=== PATIENT | female | born 1975 | race Caucasian/White ===

== ENCOUNTER → 2018-05-03 | Outpatient (CLI) | payer BC ==
[2018-05-03 13:27] VITALS: BP 123/77; PULSE 80; BMI 23.0
--- NOTE | 2018-05-03 14:11 | P.GSHP ---
History of Present Illness H&P Date: 05/03/18 Patient is a 42 year old white female with a complaint of pain in her left breast about one month ago. She states the pain was in the 12 o'clock position and there was a palpable fullness in this region and additionally there was a grape like nodule in the medial aspect of the breast which was painful as well. Both of these areas have decreased in size although she still feels a fullness in this area. The patient is status post hysterectomy 2011 for endometriosis, her ovaries were not removed. The patient has had cyclic breast pain in the past but this is the first time she has felt lumps of this nature. The patient denies any nipple discharge or skin changes. No trauma or infection of the breast. The patient does not smoke, she drinks coffee in the morning, she does drink Mountain Dew on occasion, she does not eat large amounts of chocolate. She does not have exposure to secondhand smoke. Family History: 1.paternal grandmother: lung cancer 2. mother: heart attack Hormonal History: menarche: 13 : 3, 3 children, age at first: 27, breast fed: no BCP: less than one year Hormones: none Past surgical history: 1. Hysterectomy 2. 3 laparoscopic exams for endometriosis 3. 3 C-sections 4. Tubal ligation 5. Tonsillectomy 6. Tubes in her ears Past medical history: none Social History: smoke: none alcohol: occasional drugs: none - Constitutional Comment: BMI 23 Constitutional: Denies chills, Denies fever - EENT Eyes: denies blurred vision, denies pain Ears: deny: decreased hearing, tinnitus Ears, nose, mouth and throat: Reports headache - Breasts Breasts: bilateral: as per HPI - Cardiovascular Cardiovascular: Denies chest pain, Denies shortness of breath - Respiratory Respiratory: Denies cough, Denies 7 - Gastrointestinal Comment: IBS Gastrointestinal: Reports constipation, Denies abdominal pain, Denies diarrhea, Denies nausea, Denies vomiting - Genitourinary (Female) Genitourinary: Denies dysuria, Denies hematuria - Menstruation Menstruation: Reports post hysterectomy - Musculoskeletal Comment: right shoulder pain - Integumentary Integumentary: Denies pruritus, Denies rash - Neurological Neurological: Denies numbness, Denies weakness - Psychiatric Psychiatric: Reports anxiety, Reports depression - Endocrine Endocrine: Denies fatigue, Denies weight change - Hematologic/Lymphatic Comment: none - Allergic/Immunologic Allergic/Immunologic: Reports seasonal allergies Past Medical History Past Medical History: No Reported History History of Any Multi-Drug Resistant Organisms: None Reported Past Surgical History: Section, Ear Surgery, Hysterectomy, Tonsillectomy, Tubal Ligation Additional Past Surgical History / Comment(s): Joint issues Smoking Status: Never smoker - Past Family History Mother Family Medical History: Coronary Artery Disease (CAD), Hypertension, Osteoarthritis (OA) Additional Family Medical History / Comment(s): Had heart attack at age 50, stent placement Father Family Medical History: No Reported History Brother(s) Additional Family Medical History / Comment(s): back issues, possible osteoarthritis. Medications and Allergies Allergies Allergy/AdvReac Type Severity Reaction Status Date / Time Sulfa (Sulfonamide Allergy Severe Itching Unverified 05/03/18 13:35 Antibiotics) Surgical - Exam Vital Signs Pulse BP Pulse Ox 80 123/77 98 05/03/18 13:19 05/03/18 13:19 05/03/18 13:19 BMI 23 - General well developed, well nourished, no distress - Eyes normal ocular movement - ENT no hearing loss, no congestion - Neck no masses, trachea midline - Respiratory normal respiratory effort, clear to auscultation - Cardiovascular Rhythm: regular Heart Sounds: normal: S1, S2 - Abdomen Abdomen: soft, non tender, no guarding, no rigid, no rebound - Integumentary no abnormal pigmentation - Neurologic no disoriented, no combative - Musculoskeletal normal gait, normal posture - Psychiatric oriented to time, oriented to person, oriented to place, speech is normal, memory intact Breast examination: Right breast: Extremely dense breast tissue especially at 12:00 no discrete dominant masses or nodules a multi-positional exam Right axilla: No adenopathy of concern Left breast: Extremely dense breast tissue especially in the 12:00 area but no discrete dominant masses or nodules a multi-positional exam Left axilla: No adenopathy of concern Results Mammogram was performed in October of 2017 this was a BIRADS 2, repeat bilateral mammogram in 1 year Assessment and Plan Assessment: Impression: 1. Bilateral breast pain greatest in the left side resolving at this time 2. Palpable fullness bilateral breast greatest on the left side which is resolving at this time 3. Back pain 4. History of headaches 5. Endometriosis status post hysterectomy Plan: 1. Bilateral breast ultrasound at this time 2. We will have a discussion regarding fibrocystic breast changes and possibility of exacerbation by caffeine 3. Medical management of medical problems 4. Bilateral mammogram in October 2018 We've had a discussion regarding cessation of caffeine and cyclical breast pain. The patient is going to attempt to decrease her caffeine intake. Additionally we have talked about supplements which would include vitamin E and/ or primrose oil. She will consider the supplements as well. The patient is going to follow-up after her breast ultrasound. Cc: Dr. Elias
== END ==
LOC: WWCWWP 13:18
PROVIDERS: ATTEND Surgery
DX: Z53.9 Procedure and treatment not carried out, unspecified reason (principal)

== ENCOUNTER 2020-05-01 20:40 | Emergency (ER) | payer BC, OTHER ==
[2020-05-01 20:45] VITALS: RESP 18
[2020-05-01] MEDS ORDERED: MORPHINE SULFATE 4 MG/ML SYRINGE IM STA (21:14)
[2020-05-01] MEDS ORDERED: DIPH,PERTUS(ACELL)TETVAC-LF 0.5 ML VIAL IM ONE (21:15)
--- NOTE | 2020-05-01 21:22 | ED ---
General Adult HPI - General Source: patient Mode of arrival: ambulatory Limitations: no limitations <Ruth Ybarra - Last Filed: 05/01/20 22:47> <Delia Arroyo - Last Filed: 05/02/20 12:45> - General Chief complaint: Extremity Injury, Upper Stated complaint: Fall - R Upper Extremity Injury Time Seen by Provider: 05/01/20 20:52 - History of Present Illness Initial comments: 44-year-old female presents to the emergency department tonight with complaints of right arm pain status post fall while rollerblading this afternoon. States she has most severe pain in her right shoulder and is unable to move it without significant discomfort. Complains of tenderness in the right elbow and right wrist as well. She states she took 800 mg of Motrin approximately 30 minutes prior to arrival with no change in pain level. Patient has abrasions to bilateral palms and knees. Patient was not wearing a helmet but she denies hitting her head or losing consciousness. Denies neck or back pain. Denies any other injuries. Patient denies any headache, chest pain, shortness of breath, dizziness, weakness, abdominal pain, nausea, vomiting, or difficulties with bowel movements or urination. (Ruth Ybarra) - Related Data Home Medications Medication Instructions Recorded Confirmed Multivitamin with Iron 05/03/18 [Multivitamins with Iron] Previous Rx's Medication Instructions Recorded Hydrocodone/Acetaminophen [[place] 1 tab PO Q6HR PRN #12 tab 05/01/20 5-325] Ibuprofen [Motrin] 600 mg PO Q8HR PRN #30 tab 05/01/20 Allergies Allergy/AdvReac Type Severity Reaction Status Date / Time Sulfa (Sulfonamide Allergy Severe Itching Verified 05/01/20 20:45 Antibiotics) Review of Systems ROS Other: All systems not noted in ROS Statement are negative. <Ruth Ybarra - Last Filed: 05/01/20 22:47> ROS Other: All systems not noted in ROS Statement are negative. <Delia Arroyo - Last Filed: 05/02/20 12:45> ROS Statement: Those systems with pertinent positive or pertinent negative responses have been documented in the HPI. Past Medical History Past Medical History: No Reported History History of Any Multi-Drug Resistant Organisms: None Reported Past Surgical History: Section, Ear Surgery, Hysterectomy, Tonsillectomy, Tubal Ligation Additional Past Surgical History / Comment(s): Joint issues Past Psychological History: No Psychological Hx Reported Smoking Status: Never smoker Past Alcohol Use History: Rare Past Drug Use History: None Reported - Past Family History Mother Family Medical History: Coronary Artery Disease (CAD), Hypertension, Osteoarthri tis (OA) Additional Family Medical History / Comment(s): Had heart attack at age 50, stent placement Father Family Medical History: No Reported History Brother(s) Additional Family Medical History / Comment(s): back issues, possible osteoarthritis. <Ruth Ybarra - Last Filed: 05/01/20 22:47> General Exam Limitations: no limitations General appearance: alert, in no apparent distress, other (Well-nourished, well-developed female in no acute distress. Presents with a temperature of 98.0F, pulse 71, respirations 18, blood pressure 145/66, pulse ox 100% on room air.) Head exam: Present: atraumatic, normocephalic, normal inspection Respiratory exam: Present: normal lung sounds bilaterally. Absent: respiratory distress, wheezes, rales, rhonchi, stridor Cardiovascular Exam: Present: regular rate, normal rhythm, normal heart sounds. Absent: systolic murmur, diastolic murmur, rubs, gallop, clicks GI/Abdominal exam: Present: soft, normal bowel sounds. Absent: distended, tenderness, guarding, rebound, rigid Right Shoulder Exam: Present: tenderness, swelling Elbow exam: Present: normal inspection, tenderness Forearm Wrist exam: Present: normal inspection Hand Wrist exam: Present: tenderness (Circumferential wrist tenderness upon palpation of), abrasion (Abrasion noted to the palmar surface of the right hand between thenar eminence and hypothenar eminence). Absent: swelling Neuro motor exam: Present: thumb opposition intact, fingers 2-5 abduction intact Vascular: Present: normal capillary refill, radial pulse. Absent: vascular compromise Left Hand Wrist exam: Present: full ROM, abrasion (Abrasion noted to the palmar surface of the right hand between thenar eminence and hypothenar eminence) Vascular: Present: normal capillary refill, radial pulse. Absent: vascular compromise Left Knee exam: Present: full ROM, abrasion Right Knee exam: Present: full ROM, abrasion Neurological exam: Present: alert, oriented X3, CN II-XII intact Psychiatric exam: Present: normal affect, normal mood Skin exam: Present: warm, dry, normal color. Absent: rash <Ruth Ybarra - Last Filed: 05/01/20 22:47> Course Vital Signs 05/01/20 05/01/20 20:43 22:53 Temperature 98 F 98.9 F Pulse Rate 71 67 Respiratory 18 18 Rate Blood Pressure 145/66 120/81 O2 Sat by Pulse 100 98 Oximetry Medical Decision Making - Radiology Data Radiology results: report reviewed, image reviewed <Ruth Ybarra - Last Filed: 05/01/20 22:47> <Delia Arroyo - Last Filed: 05/02/20 12:45> - Medical Decision Making 44-year-old female patient presented to the emergency department today for evaluation of right shoulder injury after experiencing a fall from her rollerblades. Physical examination did reveal significant soft tissue swelling surrounding the right shoulder. Patient also had tenderness over the right elbow and right wrist. She had multiple abrasions to the arm. X-rays were obtained of the right shoulder, right elbow and right wrist. Wrist and were negative. Right shoulder did show a impacted, comminuted fracture of the right humeral neck. Neurovascular status was intact to the arm. Upon reevaluation patient reported decreased pain to the right elbow and right wrist, no anatomical snuffbox tenderness. Patient is given IM pain medication. Updated tetanus vaccine. She was placed in a shoulder immobilizer. Case was discussed with on-call orthopedist Dr. Ren who recommends follow-up in the office this week. She'll be discharged follow up with orthopedic specialty for further evaluation as soon as possible. She is instructed to call her primary care physician for recheck in 1-2 days. Return parameters were discussed in detail. She verbalizes understanding and agrees with this plan. (Ruth Ybarra) I was available for consultation in the emergency department. The history and physical exam were done by the midlevel provider. I was consulted for this patients care. I reviewed the case with the midlevel provider and based on their presentation of the patient, I agree with the assessment, medical decision making and plan of care as documented. Chart was dictated using [employer] dictation software. Attempts were made to correct any dictation errors however some typographical errors may persist. [facility] [place] [facility] due to the Covid-19 pandem ic. (Delia Arroyo) - Radiology Data 3 views of the right elbow are obtained. Report is reviewed in its entirety. Impression by Dr. Yusuf shows negative right elbow exam X-ray of the right wrist was obtained. 4 views were obtained. Report was reviewed in its entirety. Impression by Dr. Yusuf shows normal right wrist exam X-ray of the right shoulder was obtained. Report was reviewed in its entirety. Impression by Dr. Yusuf shows impacted comminuted humeral neck fracture (Ruth Ybarra) Disposition Is patient prescribed a controlled substance at d/c from ED?: No Time of Disposition: 22:06 <Ruth Ybarra - Last Filed: 05/01/20 22:47> <Delia Arroyo - Last Filed: 05/02/20 12:45> Clinical Impression: Fracture of humeral head, right, closed, Impacted comminuted fracture Disposition: HOME SELF-CARE Condition: Good Instructions (If sedation given, give patient instructions): Proximal Humerus Fracture (ED) Additional Instructions: Use sling for comfort and support. Follow-up with technical applications specialist for further evaluation this week. Call Sunday morning for an appointment. Use medications as directed for pain control. Apply ice to the shoulder. Return to the emergency department immediately for any new, worsening, or concerning symptoms. Prescriptions: Ibuprofen [Motrin] 600 mg PO Q8HR PRN #30 tab PRN Reason: Pain Hydrocodone/Acetaminophen [[place] 5-325] 1 tab PO Q6HR PRN #12 tab PRN Reason: Pain Referrals: Tia Elias DO [Primary Care Provider] - 1-2 days Steve Ren MD [STAFF PHYSICIAN] - 1-2 days
--- NOTE | 2020-05-01 21:54 | XR ---
EXAMINATION TYPE: XR elbow complete RT DATE OF EXAM: 05/01/2020 COMPARISON: NONE HISTORY: Elbow pain TECHNIQUE: 3 views FINDINGS: I see no fracture nor dislocation. Joint spaces are normal. There is no sign of elbow joint effusion. IMPRESSION: Negative right elbow exam.
--- NOTE | 2020-05-01 21:56 | XR ---
EXAMINATION TYPE: XR wrist complete RT DATE OF EXAM: 05/01/2020 COMPARISON: NONE HISTORY: Pain TECHNIQUE: 4 views FINDINGS: Carpal bones are intact. Metacarpals appear intact. I see no fracture nor dislocation. Join t spaces appear normal. IMPRESSION: Normal right wrist exam.
--- NOTE | 2020-05-01 21:59 | XR ---
EXAMINATION TYPE: XR shoulder complete RT DATE OF EXAM: 05/01/2020 COMPARISON: NONE HISTORY: Shoulder pain TECHNIQUE: 3 views FINDINGS: There is impacted comminuted fractures of the humeral neck. There is no dislocation. Scapul a is intact. IMPRESSION: Impacted comminuted humeral neck fracture.
[2020-05-01] MEDS ORDERED: ACET/COD 300 MG/30 MG STARTER PACK 6 TAB BTL PO STA (22:03)
[2020-05-01 22:55] VITALS: BP 120/81; PULSE 67; TEMP 98.9
== END 2020-05-01 22:55 | disposition home or self-care (01) ==
LOC: EC 20:40
DX: S42.291A Other displaced fracture of upper end of right humerus, initial encounter for closed fracture (principal); S60.511A Abrasion of right hand, initial encounter; S60.512A Abrasion of left hand, initial encounter; S80.212A Abrasion, left knee, initial encounter; S80.211A Abrasion, right knee, initial encounter; M25.521 Pain in right elbow; Z23 Encounter for immunization; Z88.2 Allergy status to sulfonamides; W19.XXXA Unspecified fall, initial encounter; Y93.89 Activity, other specified; Y92.89 Other specified places as the place of occurrence of the external cause
CPT/HCPCS: 73030; 73080; 73110; 90715; 90471; 96372; 99283; L3670; J2270

== ENCOUNTER 2020-05-13 05:28 | Day surgery (SDC) | payer OTHER ==
[2020-05-11 08:55] VITALS: BMI 22.6
[~2020-05-13 05:28] MED LIST: DEXAMETHASONE SOD PHOSPHATE 10 MG/ML 1 ML VIAL IV ONE; LIDOCAINE 1% (10MG/ML) FOR IV START INTRADERMA PRN
[2020-05-13] MEDS: LACTATED RINGERS 1,000 ML IV SCH ×4 (05:56→19:42)
[2020-05-13] MEDS ORDERED: ONDANSETRON 4 MG/2 ML VIAL ONE (05:57)
[2020-05-13] MEDS ORDERED: GABAPENTIN 300 MG CAP PO STA (06:12)
[2020-05-13] MEDS ORDERED: TRANEXAMIC ACID 1,000 MG in SODIUM CHLORIDE 0.9% 100 ML IVPB ONE ×4 (06:14)
[2020-05-13] MEDS ORDERED: MIDAZOLAM 2 MG/2 ML VIAL IVP ONE (06:30)
[2020-05-13] MEDS ORDERED: ROPIVACAINE 5 MG/ML 30 ML VIAL ONE (07:04)
[2020-05-13] MEDS ORDERED: DEXAMETHASONE SOD PHOSPHATE 4 MG/ML 1 ML VIAL ONE (07:04)
[2020-05-13] MEDS ORDERED: MIDAZOLAM 2 MG/2 ML VIAL ONE (07:04)
[2020-05-13] MEDS ORDERED: PROPOFOL 10 MG/ML 20 ML VIAL IV ONE (07:04)
[2020-05-13] MEDS ORDERED: PHENYLEPHRINE-0.9% NACL SYG 1 MG/10 ML SYRINGE ONE (07:04)
[2020-05-13] MEDS ORDERED: ePHEDrine SULFATE/0.9% NACL/PF 50 MG/5 ML SYRINGE IV ONE (07:04)
[2020-05-13] MEDS ORDERED: LIDOCAINE 1% INJ 10MG/ML (20 ML MDV) ONE (07:04)
[2020-05-13] MEDS ORDERED: SUCCINYLCHOLINE CHLORIDE 100 MG/5 ML SYR IV ONE (07:04)
[2020-05-13] MEDS ORDERED: fentaNYL (PF) 50 MCG/ML 2 ML AMP ONE (07:04)
--- NOTE | 2020-05-13 07:36 | P.ANPRN ---
Procedure Note - Anesthesia - Nerve Block Performed Right Interscalene Single Time Out Performed: Yes (630) Date of Procedure: 05/13/20 Procedure Start Time: 06:31 Procedure Stop Time: 06:41 Location of Patient: PreOp Indication: Acute Post-Operative Pain, Analgesia, Requested by Surgeon Specifically requested for management of pain by DrMaynor: Steve Ren Sedation Type: Sedate with meaningful contact maintained Preparation: Sterile Prep Position: Supine Needle Types: Pajunk Needle Gauge: 21 Ultrasound used to visualize needle placement: Yes Ultrasound used to observe medication spread: Yes Injectate: 0.5% Ropivacaine (see comment for volume) (20 mL ropivaciane 0.5% with 4 mg dexamethasone) Blood Aspirated: No Pain Paresthesia on Injection Noted: No Resistance on Injection: Normal Image Stored and Saved: Yes Events: Uneventful and Well Tolerated
[2020-05-13] MEDS ORDERED: diphenhydrAMINE 25 MG CAP PO PRN (09:15)
[2020-05-13] MEDS ORDERED: PROCHLORPERAZINE SUPPOSITORY 25 MG SUPP RECTAL PRN (09:15)
[2020-05-13] MEDS ORDERED: HYDROmorphone 0.5 MG/0.5 ML SYRINGE IVP PRN ×2 (09:15)
[2020-05-13] MEDS ORDERED: SENNOSIDES-DOCUSATE SODIUM 1 EACH TAB PO PRN (09:15)
[2020-05-13] MEDS ORDERED: TEMAZEPAM 15 MG CAP PO PRN (09:15)
[2020-05-13] MEDS ORDERED: ONDANSETRON 4 MG/2 ML VIAL IVP PRN (09:15)
[2020-05-13] MEDS ORDERED: METOCLOPRAMIDE 5 MG/ML 2 ML VIAL IVP PRN (09:15)
[2020-05-13] MEDS ORDERED: HYDROcodone/APAP 5-325MG 1 EACH TAB PO PRN ×2 (09:15)
[2020-05-13] MEDS ORDERED: HYDROcodone/APAP 7.5-325MG 1 EACH TAB PO PRN (09:18)
--- NOTE | 2020-05-13 10:02 | FL ---
EXAMINATION TYPE: FL guidance operating room, XR shoulder complete RT DATE OF EXAM: 05/13/2020 CLINICAL HISTORY: Comminuted right shoulder fracture. TECHNIQUE: Fluoroscopy. Complete intraoperative views right shoulder. COMPARISON: Right shoulder x-rays May 01, 2020. FINDINGS: Fluoroscopic guidance was provided during open reduction internal fixation procedure perfo rmed by Dr. Ren. A total of 42 seconds of fluoroscopic time was utilized during the procedure and 4 spot intraoperative images are acquired. Intraoperative images obtained show placement of lateral fixating plate with 4 femoral head fixating screws through comminuted displaced fracture surgical neck right proximal humerus. Improved alignment is seen after reduction and fixation. IMPRESSION: As Above.
--- NOTE | 2020-05-13 12:00 | OP ---
OPERATIVE REPORT DATE OF PROCEDURE: 05/13/2020 SURGEON: Steve Ren MD. CLOTH REELER: Jay JACOBSEN. PREOPERATIVE DIAGNOSIS: Right displaced 3-part proximal humerus fracture. POSTOPERATIVE DIAGNOSIS: Right displaced 3-part proximal humerus fracture. PROCEDURE: Open reduction, internal fixation, right proximal humerus fracture. ANESTHESIA: General endotracheal. ESTIMATED BLOOD LOSS: 75 mL. TOURNIQUET: None. DRAINS: None. COMPLICATIONS: None apparent. DISPOSITION: Postanesthesia care unit. INDICATIONS: Cristine is a very pleasant 44-year-old female who was rollerblading and fell onto her right arm approximately 7 days ago. Workup including x-rays and a CT scan revealed a significantly displaced valgus impacted three-part proximal humerus fracture. She is a very active person. Recommendation was made for open reduction, internal fixation of her proximal humerus fracture. A long discussion was held with the patient with regard to treatment options. The risks of procedure were discussed with her in detail. These risks included, but were not limited to risk of infection, nerve damage, bleeding, pain, and a small risk of deep vein thrombosis which could lead to fatal pulmonary embolism. Further risks include failure of the fracture to heal, failure of the hardware and a small possibility for avascular necrosis of the humeral head. The patient understands the operation as well as the fact that there is no guarantee of improvement of her symptoms. Appropriate informed consent was obtained. DESCRIPTION OF PROCEDURE: The patient identified in preoperative holding area. Surgical site was marked by both the patient and myself. She was given 2 g of Ancef IV for prophylactic purposes. She was then transported to the operative suite. She was placed supine on the operative table. A general anesthetic was then administered and dosed per the Anesthesia Department without apparent complication. She was then placed into the beach chair position, well-padded in preparation for surgery. Great care was taken to ensure that her cervical spine was in neutral alignment, well-padded and maintained that way throughout the operative procedure. Great care was also taken to ensure that her legs were appropriately padded as well. The patient's right upper extremity was then prepped and draped in the usual sterile fashion. Standard surgical pause was undertaken to ensure that appropriate preoperative antibiotics were given and that we were operating on the correct site. All staff were in agreement and we proceeded. The acromion as well as the AC joint and coracoid marked with surgical pen. The planned incision starting at the level of clavicle extending distally over the deltopectoral interval approximately 1 cm lateral to the coracoid was then marked with surgical pen. Incision was then made with a 10 blade scalpel. Dissection carried down sharply to the deltoid fascia. Hemostasis achieved with electrocautery. The deltopectoral interval was then identified at the level of the clavicle. A small band retractor was then placed onto the proximal deltoid. I then released the deltoid fascia on the lateral aspect of the cephalic vein. The vein was preserved, protected and left in its bed medially. The cephalic vein was also protected throughout the entire case. I then identified the clavipectoral fascia. This was then incised proximally at the level of the coracoacromial ligament. The coracoacromial ligament was left intact. Then used my finger to spread the interval between the conjoint tendon and the subscapularis. I then felt for the axillary nerve which was readily palpable. I then cleared the subacromial and subdeltoid spaces of the hemorrhagic bursal and scar tissue. The fracture was readily identified at this point. There was a very large greater tuberosity piece fragment which was pulled around posteriorly. The humeral head was impacted and in quite a bit of valgus and the lesser tuberosity was minimally displaced anteriorly. I first started by placing a #1 Vicryl traction sutures in the subscapularis, supraspinatus, and as posteriorly as possible in the infraspinatus. This gave me good control of the lesser and greater tuberosities. I then proceeded to utilize a bone tamp to reduce the humeral head. I was in quite a bit of valgus. I was able to gently tamp the humeral head medially, which reduced the head out of valgus and back into its more normal anatomic alignment. At this point, I was able to reduce the tuberosities back to their anatomic position. I was then able to use heavy suture. We used a #1 Vicryl suture to suture the tuberosities back together in anatomic position. Fluoroscopy was then brought in to confirm the reduction. The humeral head had been reduced. The fractures have been reduced anatomically. I then proceeded to place a Synthes proximal humeral locking plate for definitive fixation. This was a 2 hole plate. I first placed the plate on the posterior of the bicipital groove on the lateral cortex of the proximal humerus. Provisional K-wires were then placed to hold the plate. Fluoroscopy was then brought in, the position of the plate was appropriated. It was of the right height. It was approximately 15-20 mm from the superior most aspect of the humeral head anterior inferior to the superior most aspect of the humeral head. I was happy with placement of the plate. I then proceeded with fixation. I first placed a 3.5 mm bicortical nonlocking screw in the oblong hole of the distal 2 shaft holes of the plate. This gave me good provisional fixation of the plate and compression of the plate to the lateral aspect of the humerus. I then placed the proximal locking screws through the plate. These were placed under fluoroscopic guidance to ensure that they were of appropriate length and did not penetrate the articular surface of the of humeral head. Three locking screws were placed through the greater tuberosity fragment. I did utilize the traction sutures to reduce the greater tuberosity while we were placing the screws. This gave me a very good fixation through the large posterior greater tuberosity fragment. Locking screws were also placed into the lesser tuberosity. The "kickstand" screw which went along the inferomedial cortex of the humeral head and through the shaft was also placed. Again, all screws were of appropriate length and were placed under fluoroscopic guidance. I then proceeded finally to place a second bicortical nonlocking screw through the most distal hole of the plate. Again this was a 3.5 mm bicortical nonlocking screw. At this point, I placed multiple sutures through the infraspinatus and then through the small holes of the plate to further augment the fixation. This was a parachute type technique. The traction sutures that were placed in the supraspinatus and through the small holes in the plate as well. This gave me excellent secondary fixation. Final fluoroscopic images were then taken. The humeral head fracture had been reduced anatomically. The plate was of appropriate length. All of the screws were through bone and were of appropriate length. All of the locking screws were well placed into the humeral head and did not violate the articular surface. At this point time no further work was deemed necessary. The shoulder was then thoroughly irrigated with sterile saline solution with antibiotic added. I then again felt for the axillary nerve which was readily palpable and un-injured. I then proceeded with closure. The cephalic vein had again was preserved and intact. The deltopectoral interval was then closed with interrupted 0 Vicryl sutures. The again the wound was thoroughly irrigated with sterile saline solution with antibiotic added. The subcutaneous tissue closed with 2-0 Vicryl interrupted suture and the skin was closed with a running 3-0 Quill suture. Dermabond was then applied to the incision. A sterile compressive dressing was then applied in her right upper extremity was placed into a standard sling. All sponge and needle counts were deemed correct prior to closure. The patient tolerated procedure without apparent complication. She was transferred to recovery room in stable condition. MMODL / IJN: [id number] /
[2020-05-13] MEDS: HYDROcodone/APAP 7.5-325MG 1 EACH TAB PO PRN ×2 (17:10→18:12)
[2020-05-13] MEDS: HYDROmorphone 1 MG/ML 1 ML SYRINGE IVP PRN (19:25)
[2020-05-13] MEDS ORDERED: HYDROcodone/APAP 10-325MG 1 EACH TAB PO PRN (20:52)
[2020-05-13] MEDS ORDERED: HYDROmorphone 1 MG/ML 1 ML SYRINGE IVP STA (20:52)
[2020-05-13] MEDS: HYDROcodone/APAP 10-325MG 1 EACH TAB PO PRN (23:14)
[2020-05-14] MEDS: LACTATED RINGERS 1,000 ML IV SCH (00:16)
[2020-05-14] MEDS: HYDROmorphone 1 MG/ML 1 ML SYRINGE IVP PRN ×2 (00:55→04:05)
[2020-05-14 02:41] VITALS: RESP 18
[2020-05-14] MEDS: HYDROcodone/APAP 10-325MG 1 EACH TAB PO PRN (05:38)
[2020-05-14 07:57] VITALS: BP 131/82; PULSE 78; TEMP 98.2
--- NOTE | 2020-05-14 09:50 | P.DS ---
Providers Expected date of discharge: 05/14/20 Attending physician: Steve Ren Primary care physician: Tia Trujillo Curt - Discharge Diagnosis(es) (1) Fracture of humeral head, right, closed Patient was admitted to the OR on 05/13/2020 to undergo an ORIF of right proximal humerus fracture. She had failed conservative measures as an outpatient and desired to proceed with elective surgery after given informed consent. She underwent the above procedure which she tolerated well without complication. Postoperative hospital course has remained without complication. On day of discharge she is afebrile, vital signs stable, labs within acceptable ranges, tolerating by mouth meds and diet, voiding without difficulty, positive flatus, denies abdominal pain or calf pain, pain is controlled on oral pain medication and has no new complaints. Wound is benign, neurovascular status is intact, calf is soft and nontender, abdomen soft and nontender. Review of systems is negative for numbness, tingling, fever, chills, chest pain, shortness of breath, nausea, vomiting, dizziness, headaches, slurred speech or other. Current Visit: No Status: Acute Priority: Medium Procedures: ORIF right proximal humerus fracture Patient Condition at Discharge: Good Plan - Discharge Summary Discharge Rx Participant: No New Discharge Prescriptions: New Docusate [Colace] 100 mg PO BID #60 capsule Doxycycline Hyclate 100 mg PO BID #10 tab HYDROcodone/APAP 10-325MG [[place] 10-325] 1 tab PO Q4HR PRN #42 tab PRN Reason: Pain oxyCODONE ER [OxyCONTIN] 10 mg PO Q12HR 5 Days #10 tab Ondansetron HCl [Zofran] 4 mg PO Q6H PRN #28 tab PRN Reason: Nausea And Vomiting No Action Ibuprofen [Motrin] 600 mg PO Q8HR PRN #30 tab PRN Reason: Pain Hydrocodone/Acetaminophen [[place] 5-325] 1 tab PO Q6HR PRN #12 tab PRN Reason: Pain polyethylene glycoL 3350 [Miralax] 17 gm PO DAILY Lactose-Reduced Food [Boost] 237 ml PO DAILY Omeprazole [PriLOSEC] 20 mg PO DAILY PRN PRN Reason: hx gastritis Citracel Fiber Tab 1 tab PO DAILY PRN PRN Reason: Constipation Discharge Medication List Hydrocodone/Acetaminophen [[place] 5-325] 1 tab PO Q6HR PRN #12 tab 05/01/20 [Rx] Ibuprofen [Motrin] 600 mg PO Q8HR PRN #30 tab 05/01/20 [Rx] Citracel Fiber Tab 1 tab PO DAILY PRN 05/11/20 [History] Lactose-Reduced Food [Boost] 237 ml PO DAILY 05/11/20 [History] Omeprazole [PriLOSEC] 20 mg PO DAILY PRN 05/11/20 [History] polyethylene glycoL 3350 [Miralax] 17 gm PO DAILY 05/11/20 [History] Docusate [Colace] 100 mg PO BID #60 capsule 05/14/20 [Rx] Doxycycline Hyclate 100 mg PO BID #10 tab 05/14/20 [Rx] HYDROcodone/APAP 10-325MG [[place] 10-325] 1 tab PO Q4HR PRN #42 tab 05/14/20 [Rx] Ondansetron HCl [Zofran] 4 mg PO Q6H PRN #28 tab 05/14/20 [Rx] oxyCODONE ER [OxyCONTIN] 10 mg PO Q12HR 5 Days #10 tab 05/14/20 [Rx] Follow up Appointment(s)/Referral(s): Steve Ren MD [STAFF PHYSICIAN] - 1 Week Activity/Diet/Wound Care/Special Instructions: maintain sling. keep wound clean and dry may shower in three days if no bleeding no weight bearing right upper extremity take meds as directed follow up with Dr. Ren in office Discharge Disposition: HOME SELF-CARE
[2020-05-14] MEDS ORDERED: oxyCODONE ER 10 MG TAB.ER.12H PO SCH (10:00)
== END 2020-05-14 11:00 | disposition home or self-care (01) ==
LOC: OR 05:28 → 4SSUR 09:18 → OR 05-14 11:00
PROVIDERS: ATTEND Orthopaedic Surgery Sports Medicine
DX: S42.251A Displaced fracture of greater tuberosity of right humerus, initial encounter for closed fracture (principal); K21.9 Gastro-esophageal reflux disease without esophagitis; Z88.2 Allergy status to sulfonamides; Z98.891 History of uterine scar from previous surgery; Z98.51 Tubal ligation status; Z90.710 Acquired absence of both cervix and uterus; Z98.890 Other specified postprocedural states; Z79.899 Other long term (current) drug therapy; Z82.49 Family history of ischemic heart disease and other diseases of the circulatory system; V00.131A Fall from skateboard, initial encounter; Y93.51 Activity, roller skating (inline) and skateboarding
CPT/HCPCS: 64415; 76942; 73030; 23630; C1713; J2250; J1100 ×2; J0690; J2405; J2001; J3010; J1170 ×3; J2795; J2370; J0330; J2704